=== PATIENT | male | born 1945 | race Caucasian/White ===

== ENCOUNTER 2020-08-08 02:13 | Emergency (ER) | payer BC, OTHER ==
[2020-08-08 02:22] VITALS: TEMP 98.9; BMI 24.3
[2020-08-08] MEDS ORDERED: ALBUTEROL SO4 2.5/IPRATROPIUM 0.5 INH SOL 3 ML VIAL.NEB. NEB ONE ×4 (03:01→04:13)
[2020-08-08 03:32] LABS: EOS % 6.4 % (0-4.5); HEMATOCRIT 44.8 % (35.4-49); HEMOGLOBIN 15.5 GM/dL (11.7-16.9); LYMPH % 27.2 % (8-40); MCH 32.8 pg (25.7-33.7); MCHC 34.5 g/dl (32.0-35.9); MEAN CELL VOLUME 95.1 fl (80-96); MEAN PLT VOLUME 9.2 fl (7.5-11.1); MONO % 9.4 % (3.8-10.2); PLATELET COUNT 232 K/MM3 (134-434); RBC 4.72 M/mm3 (4.00-5.60); RDW 12.8 % (11.9-15.9); WHITE BLOOD COUNT 5.9 K/mm3 (4.0-10.0)
[2020-08-08 03:43] LABS: ALBUMIN 3.5 g/dl (3.4-5.0); BLOOD UREA NITROGEN 18.4 mg/dL (7-18); CALCIUM 8.5 mg/dL (8.5-10.1)
[2020-08-08 03:46] LABS: CREATININE 1.1 mg/dL (0.55-1.3)
[2020-08-08 03:48] LABS: BILIRUBIN,TOTAL 0.6 mg/dL (0.2-1)
[2020-08-08] MEDS ORDERED: FUROSEMIDE 40 MG/4 ML INJECTABLE VIAL IVPUSH ONE (03:58)
[2020-08-08] MEDS ORDERED: FUROSEMIDE 40 MG/4 ML INJECTABLE VIAL ONE (04:00)
[2020-08-08] MEDS ORDERED: methylPREDNISolone NA SUCC 40 MG/1 ML VIAL ONE (04:13)
[2020-08-08] MEDS ORDERED: methylPREDNISolone NA SUCC 40 MG/1 ML VIAL IVPB ONE (04:14)
[2020-08-08] MEDS ORDERED: methylPREDNISolone NA SUCC 40 MG/1 ML VIAL IVPUSH ONE (04:31)
[2020-08-08] MEDS ORDERED: AZITHROMYCIN 250 MG TABLET PO ONE (04:37)
[2020-08-08] MEDS ORDERED: AZITHROMYCIN 250 MG TABLET ONE (04:38)
[2020-08-08 04:48] VITALS: BP 176/82; PULSE 72
[2020-08-08] MEDS ORDERED: methylPREDNISolone NA SUCC 40 MG/1 ML VIAL IVPUSH SCH (10:00)
== END 2020-08-08 04:54 | disposition home or self-care (01) ==
LOC: FER 02:13
PROC: 3E0F7GC Introduction of Other Therapeutic Substance into Respiratory Tract, Via Natural or Artificial Opening (ICD-10-PCS; principal; 2020-08-08)
PROC: 3E0F7GC Introduction of Other Therapeutic Substance into Respiratory Tract, Via Natural or Artificial Opening (ICD-10-PCS; 2020-08-08)
PROC: 3E033GC Introduction of Other Therapeutic Substance into Peripheral Vein, Percutaneous Approach (ICD-10-PCS; 2020-08-08)
PROC: 3E033GC Introduction of Other Therapeutic Substance into Peripheral Vein, Percutaneous Approach (ICD-10-PCS; 2020-08-08)
DX: J20.9 Acute bronchitis, unspecified (principal); I10 Essential (primary) hypertension
CPT/HCPCS: 36415; 71045-TC-FY; 80053; 82550; 82553; 83880; 84484; 85025; 93005; 99285-25; C9803; U0003

== ENCOUNTER 2021-12-03 09:43 | Emergency (ER) | payer BC, OTHER ==
[2021-12-03 09:48] VITALS: BP 158/84; PULSE 76; TEMP 98; BMI 24.3
[2021-12-03] MEDS ORDERED: ACETAMINOPHEN 500 MG TABLET (FP) PO ONE (10:13)
[2021-12-03] MEDS ORDERED: LIDOCAINE 5% TOPICAL PATCH TP ONE (10:14)
[2021-12-03] MEDS ORDERED: LIDOCAINE 5% TOPICAL PATCH ONE (10:20)
[2021-12-03] MEDS ORDERED: ACETAMINOPHEN 325 MG TABLET (FP) ONE (10:20)
[2021-12-03] MEDS ORDERED: LIDOCAINE PATCH REMOVAL MC SCH (22:00)
== END 2021-12-03 11:58 | disposition home or self-care (01) ==
LOC: FER 09:43
DX: S42.002A Fracture of unspecified part of left clavicle, initial encounter for closed fracture (principal); V18.0XXA Pedal cycle driver injured in noncollision transport accident in nontraffic accident, initial encounter
CPT/HCPCS: 71046-TC-FY; 71101-TC-LT-FY; 73030-TC-LT-FY; 73502-TC-LT-FY; 99284-25